=== PATIENT | male | born 1940 | race Caucasian/White ===

== ENCOUNTER 2024-11-07 07:42 | Day surgery (SDC) | payer MEDICARE, SELFPAY ==
[2024-11-01 10:23] VITALS: BMI 24.9
--- NOTE | 2024-11-04 09:38 | HO.ANESPROP2 ---
HPI - Anesthesia Eval Consult details Narrative: 83yo M for Right Cataract Extraction IOL Insertion No previous cataract on record Aortic stenosis with FARZANA = 1.1 PMFSH Past Medical History Medical History History of Mohs micrographic surgery for skin cancer Squamous cell skin cancer Pre-diabetes Osteoarthritis Macrocytosis LVH (left ventricular hypertrophy) Aortic stenosis Surgical History Surgical History History of vitrectomy H/O colonoscopy Social History Social History (Updated 11/01/24 @ 09:52 by Zulema Cruz RN) Are you a primary rn transitional care to a significant other at home: No Do you presently have visiting nurse or other home services: No Patient Tobacco Use Status: Former Tobacco user Tobacco use type: Cigarette Years Smoked: 10 Use of substances other than those prescribed or required for medical reasons: No Have you been hit, kicked, punched, or otherwise hurt by someone within the past year? If so, by whom?: No Spiritual Healthcare Practices: no Congregational Healthcare Practices: no Cultural Healthcare Practices: no Are you DNR?: No Advance Directives Information Provided: Yes (as above noted) Advance Directives on File: No Poor oral hygiene: No Meds Allergies Allergy/AdvReac Type Severity Reaction Status Date / Time No Known Allergies Allergy Verified 11/07/24 07:48 Active Medications: Current Medications Cyclopentolate HCl (Cyclopentolate 1 % Ophth Jazlyn 2 Ml Drpbtl) 1 drop EYE-RIGHT Q5M CHRISTAL Stop: 11/07/24 00:11 Ketorolac Tromethamine (Ketorolac Tromethamine 0.5% Op 5 Ml Drops) 1 drop EYE-RIGHT Q5M CHRISTAL Stop: 11/07/24 00:11 Moxifloxacin HCl (Moxifloxacin Hcl 0.5 % Oph Jazlyn 3 Ml Drpbtl) 1 drop EYE-RIGHT POSTOP ONE Stop: 11/07/24 00:01 Phenylephrine HCl (Phenylephrine Hcl 2.5% Oph Jazlyn 2 Ml Bottle) 1 drop EYE-RIGHT Q5M CHRISTAL Stop: 11/07/24 00:11 Povidone Iodine (Povidone Iodine 5 % Ophth Soln 30 Ml Bottle) 1 appl EYE-RIGHT PREOP PRN PRN Reason: Pre-Op Surgical Implant Prophy Tetracaine HCl (Tetracaine Hcl/Pf 0.5% Oph Jazlyn 4 Ml Drops) 1 drop EYE-RIGHT PREOP ONE Stop: 11/07/24 00:01 Triamcinolone Acetonide (Triamcinolone Acetonide 40 Mg/Ml Vial) 40 mg IM POSTOP ONE Stop: 11/07/24 00:01 Tropicamide (Tropicamide 1 % Ophth Jazlyn 3 Ml Btl) 1 drop EYE-RIGHT Q5M CHRISTAL Stop: 11/07/24 00:11 Home Medications ?Medication ?Instructions ?Recorded ?Confirmed ?Last Taken ?Type acetaminophen 325 mg tablet 650 mg PO Q4H PRN Pain 11/01/24 11/01/24 Unknown History (Tylenol) cholecalciferol (vitamin D3) 10 10 mcg PO DAILY 11/01/24 11/01/24 Unknown History mcg (400 unit) capsule (Vitamin D3) cyanocobalamin (vitamin B-12) 1,000 mcg PO DAILY 11/01/24 11/01/24 Unknown History 1,000 mcg tablet (Vitamin B-12) cyclosporine 0.05 % eye drops in a 1 drp ophthalmic (eye) BID 11/01/24 11/01/24 Unknown History dropperette ibuprofen 200 mg tablet 400 mg PO Q6H PRN Pain 11/01/24 11/01/24 Unknown History multivitamin 1 tab PO DAILY 11/01/24 11/01/24 Unknown History omega 4-vez-lxn-fish oil 100 1 cap PO DAILY 11/01/24 11/01/24 Unknown History mg-160 mg-1,000 mg capsule (Fish Oil) prednisolone acetate 1 % eye 1 drp ophthalmic-Right QID 11/01/24 11/01/24 Unknown History drops,suspension Exam Height,Weight and Vital Signs: Height 5 ft 6.54 in Weight 71.1 kg Assessment and Plan Assessment Anesthesia Assessment: Chart Reviewed
--- NOTE | 2024-11-07 07:59 | HO.ANESPROP2 ---
[facility] Past Medical History Medical History History of Mohs micrographic surgery for skin cancer Squamous cell skin cancer Pre-diabetes Osteoarthritis Macrocytosis LVH (left ventricular hypertrophy) Aortic stenosis Functional capacity: independent ambulation Family History Family history of problems with anesthesia: No Surgical History Surgical History History of vitrectomy H/O colonoscopy History of Problems with Anesthesia: No Social History Social History (Updated 11/01/24 @ 09:52 by Zulema Cruz RN) Are you a primary health care analyst to a significant other at home: No Do you presently have visiting nurse or other home services: No Patient Tobacco Use Status: Former Tobacco user Tobacco use type: Cigarette Years Smoked: 10 Use of substances other than those prescribed or required for medical reasons: No Have you been hit, kicked, punched, or otherwise hurt by someone within the past year? If so, by whom?: No Spiritual Healthcare Practices: no Rastafari Healthcare Practices: no Cultural Healthcare Practices: no Are you DNR?: No Advance Directives Information Provided: Yes (as above noted) Advance Directives on File: No Poor oral hygiene: No Meds Allergies Allergy/AdvReac Type Severity Reaction Status Date / Time No Known Allergies Allergy Verified 11/07/24 07:48 Active Medications: Current Medications Povidone Iodine (Povidone Iodine 5 % Ophth Soln 30 Ml Bottle) 1 appl EYE-RIGHT PREOP PRN PRN Reason: Pre-Op Surgical Implant Prophy Home Medications ?Medication ?Instructions ?Recorded ?Confirmed ?Last Taken ?Type acetaminophen 325 mg tablet 650 mg PO Q4H PRN Pain 11/01/24 11/01/24 Unknown History (Tylenol) cholecalciferol (vitamin D3) 10 10 mcg PO DAILY 11/01/24 11/01/24 Unknown History mcg (400 unit) capsule (Vitamin D3) cyanocobalamin (vitamin B-12) 1,000 mcg PO DAILY 11/01/24 11/01/24 Unknown History 1,000 mcg tablet (Vitamin B-12) cyclosporine 0.05 % eye drops in a 1 drp ophthalmic (eye) BID 11/01/24 11/01/24 Unknown History dropperette ibuprofen 200 mg tablet 400 mg PO Q6H PRN Pain 11/01/24 11/01/24 Unknown History multivitamin 1 tab PO DAILY 11/01/24 11/01/24 Unknown History omega 3-wnh-hcw-fish oil 100 1 cap PO DAILY 11/01/24 11/01/24 Unknown History mg-160 mg-1,000 mg capsule (Fish Oil) prednisolone acetate 1 % eye 1 drp ophthalmic-Right QID 11/01/24 11/01/24 Unknown History drops,suspension Exam Height,Weight and Vital Signs: Height 5 ft 6.54 in Weight 71.1 kg Airway Mallampati Class: II TM Dist: >3cm Neck ROM: Full Heart: RRR Lungs: CYA Assessment and Plan Assessment Anesthesia Assessment: Anesthesia Plan Discussed Final Anesthetic Review Family History of Problems with Anesthesia: No History of Problems with Anesthesia: No NPO: Yes ASA Class: II Final Preanesthetic Review: Meds/Allgs Chart Reviewed, Consent Obtained/Reviewed and Anes Risks/Benef Reviewed Patient Risk: Low Procedure Risk: Low Anesthetic Plan Anesthetic Plan: MAC: Disposition: Standard PACU
[2024-11-07] MEDS: Tetracaine HCl/PF 0.5% Oph Sol 4 ML DROPS 1 DROP EYE-RIGHT (08:05)
[2024-11-07] MEDS: Tropicamide 1 % Ophth Sol 3 ML BTL 1 DROP EYE-RIGHT ×3 (08:06→08:22)
[2024-11-07] MEDS: Cyclopentolate 1 % Ophth Sol 2 ML DRPBTL 1 DROP EYE-RIGHT ×3 (08:06→08:22)
[2024-11-07] MEDS: Phenylephrine HCL 2.5% Oph SoL 2 ML BOTTLE 1 DROP EYE-RIGHT ×3 (08:06→08:22)
[2024-11-07] MEDS: Ketorolac Tromethamine 0.5% Op 5 ML DROPS 1 DROP EYE-RIGHT ×3 (08:06→08:21)
[2024-11-07] MEDS: Lactated Ringers 500 ML 50 ML IV (08:06)
[2024-11-07 08:23] VITALS: BP 132/66; PULSE 61; RESP 18; TEMP 36.7; O2SAT 95
--- NOTE | 2024-11-07 08:58 | P.PCNO_ITS ---
Ophthalmology Procedure Procedure Date of Service: 11/07/24 Ophthalmology Viscoelastic: Healon Duet Dual Pack Pro Ophthalmology Lenses: IOL Acrysof MP - MA60AC (13) Procedure Notes: PREOPERATIVE DIAGNOSIS: Decreased visual acuity right eye secondary to cataract POSTOPERATIVE DIAGNOSIS: Same PROCEDURE: Right cataract extraction with intraocular lens insertion SURGEON: Juancarlos Vaz M.D. ANESTHESIA: Topical/MAC ESTIMATED BLOOD LOSS: None COMPLICATIONS: None After obtaining informed consent, the patient was brought to the operating room suite and placed in the supine position. After adequate sedation per anesthesia, topical drops of Tetracaine were given to the right eye. The eye was then prepped and draped in the usual sterile fashion. The operating room microscope was then positioned over the operative eye and a lid speculum placed. A paracentesis was created. Viscoelastic was then instilled into the anterior chamber. A three plane incision was then created temporally, utilizing a 2.85 mm keratome. Capsulotomy forceps were then utilized to create a circular tear capsulotomy. Hydrodissection and hydrodelineation were carried out until adequate mobilization of the nucleus occurred. Phacoemulsification was then utilized to remove the dense central nucl eus followed by removal of the cortical material utilizing the automated aspiration irrigation unit. Viscoelastic was instilled into the posterior capsular bag followed by placement of a posterior chamber intraocular lens without difficulty. The residual Viscoelastic was then removed utilizing the automated IA machine. The wound was checked and found to be watertight. The patient tolerated the procedure well and the lid speculum was removed. Intracameral injection of Vigamox 0.1 mL followed by a subtenon injection of Kenalog-40 0.2 mL were administered. The patient will be seen in the a.m.
--- NOTE | 2024-11-07 08:58 | MHC.SHP ---
Pre-Procedural Eval Section A - 24 Hr Update-Section A only Date of Service: 11/07/24 The patient is an INPATIENT: No Changes since office visit: No Cold of Flu in the past 2 weeks, No New Medical Problems, No Changes in Medication and No Patient answered all questions The patient has been examined within 24 hours of the surgical procedure. The History & Physical has been completed within 30 days and I have reviewed it.: Yes Section B - Complete if H&P > 30 days Chief Complaint: Age-related nuclear cataract, right eye Allergies: Allergies Allergy/AdvReac Type Severity Reaction Status Date / Time No Known Allergies Allergy Verified 11/07/24 07:48 Plan Diagnosis/Plan: Unchanged I have reviewed the history and physical and performed a pertinent physical examination on my patient. No changes have occurred unless specified. Time Spent With Patient Time: Total time managing care of this patient today ____ minutes.
[2024-11-07 09:26] VITALS: BP 123/63; PULSE 63; RESP 16; TEMP 36.3; O2SAT 96
[2024-11-07 09:28] VITALS: BP 126/63; PULSE 59; RESP 16; TEMP 36.3; O2SAT 96
--- NOTE | 2024-11-07 09:37 | HO.POSTANES ---
Post Anesthesia Evaluation Post Anesthesia Evaluation Date of Service: 11/07/24 Vital Signs: Vital Signs Temp Pulse Resp BP Pulse Ox O2 Del Method 11/07/24 09:28 97.3 F 59 16 126/63 96 Room Air 11/07/24 09:26 97.3 F 63 16 123/63 96 Room Air 11/07/24 08:23 98.0 F 61 18 132/66 95 Room Air Anesthesia: Monitored Mental Status: Awake Pain Control: Satisfactory Nausea/Vomiting: None Hydration: Adequate Anesthesia-Related Issues: No Anes. Related Issues
== END 2024-11-07 09:35 | disposition home or self-care (01) ==
PROVIDERS: PCP Internal Medicine; Visit Provider Ophthalmology
PROC: (CPT 66985; principal; 2024-11-07 09:30)
DX: H25.11 Age-related nuclear cataract, right eye (principal); H54.7 Unspecified visual loss; H35.371 Puckering of macula, right eye; H18.413 Arcus senilis, bilateral; H04.123 Dry eye syndrome of bilateral lacrimal glands; H43.393 Other vitreous opacities, bilateral; H31.093 Other chorioretinal scars, bilateral; I35.0 Nonrheumatic aortic (valve) stenosis; R73.03 Prediabetes; Z85.828 Personal history of other malignant neoplasm of skin; Z79.1 Long term (current) use of non-steroidal anti-inflammatories (NSAID); Z79.899 Other long term (current) drug therapy; Z98.890 Other specified postprocedural states; Z87.891 Personal history of nicotine dependence
CPT/HCPCS: 66984; J2250; J3301; V2630

== ENCOUNTER 2024-11-21 07:24 | Day surgery (SDC) | payer MEDICARE, SELFPAY ==
[2024-11-01 10:29] VITALS: BMI 24.9
[2024-11-21 08:14] VITALS: BP 104/85; PULSE 56; RESP 16; TEMP 36.1; O2SAT 94
[2024-11-21] MEDS: Tetracaine HCl/PF 0.5% Oph Sol 4 ML DROPS 1 DROP EYE-LEFT (08:17)
[2024-11-21] MEDS: Tropicamide 1 % Ophth Sol 3 ML BTL 1 DROP EYE-LEFT ×3 (08:18→08:25)
[2024-11-21] MEDS: Cyclopentolate 1 % Ophth Sol 2 ML DRPBTL 1 DROP EYE-LEFT ×3 (08:18→08:24)
[2024-11-21] MEDS: Phenylephrine HCL 2.5% Oph SoL 2 ML BOTTLE 1 DROP EYE-LEFT ×3 (08:21→08:26)
[2024-11-21] MEDS: Ketorolac Tromethamine 0.5% Op 5 ML DROPS 1 DROP EYE-LEFT ×3 (08:21→08:25)
[2024-11-21] MEDS: Lactated Ringers 500 ML 50 ML IV (08:28)
--- NOTE | 2024-11-21 08:29 | HO.ANESPROP2 ---
[facility] Past Medical History Medical History History of Mohs micrographic surgery for skin cancer Squamous cell skin cancer Pre-diabetes Osteoarthritis Macrocytosis LVH (left ventricular hypertrophy) Aortic stenosis Family History Family history of problems with anesthesia: No Surgical History Surgical History History of vitrectomy H/O colonoscopy History of Problems with Anesthesia: No Social History Social History (Updated 11/01/24 @ 09:52 by Zulema Cruz RN) Are you a primary respiratory care technician to a significant other at home: No Do you presently have visiting nurse or other home services: No Patient Tobacco Use Status: Former Tobacco user Tobacco use type: Cigarette Years Smoked: 10 Use of substances other than those prescribed or required for medical reasons: No Have you been hit, kicked, punched, or otherwise hurt by someone within the past year? If so, by whom?: No Spiritual Healthcare Practices: no Buddhism Healthcare Practices: no Cultural Healthcare Practices: no Are you DNR?: No Advance Directives Information Provided: Yes (as above noted) Advance Directives on File: No Poor oral hygiene: No Meds Allergies Allergy/AdvReac Type Severity Reaction Status Date / Time No Known Allergies Allergy Verified 11/07/24 07:48 Active Medications: Current Medications Lactated Ringer's (Lr) 500 mls @ 50 mls/hr IV .Q10H CHRISTAL Stop: 11/21/24 18:29 Last Admin: 11/21/24 08:28 Dose: 50 mls/hr Naloxone HCl (Naloxone Hcl 0.4 Mg/Ml Vial) 0.04 mg IVPUSH Q5M PRN PRN Reason: Excessive sedation or RR < 8 Povidone Iodine (Povidone Iodine 5 % Ophth Soln 30 Ml Bottle) 1 appl EYE-LEFT PREOP PRN PRN Reason: Pre-Op Surgical Implant Prophy Home Medications ?Medication ?Instructions ?Recorded ?Confirmed ?Last Taken ?Type acetaminophen 325 mg tablet 650 mg PO Q4H PRN Pain 11/01/24 11/01/24 Unknown History (Tylenol) cholecalciferol (vitamin D3) 10 10 mcg PO DAILY 11/01/24 11/01/24 Unknown History mcg (400 unit) capsule (Vitamin D3) cyanocobalamin (vitamin B-12) 1,000 mcg PO DAILY 11/01/24 11/01/24 Unknown History 1,000 mcg tablet (Vitamin B-12) cyclosporine 0.05 % eye drops in a 1 drp ophthalmic (eye) BID 11/01/24 11/01/24 Unknown History dropperette ibuprofen 200 mg tablet 400 mg PO Q6H PRN Pain 11/01/24 11/01/24 Unknown History multivitamin 1 tab PO DAILY 11/01/24 11/01/24 Unknown History omega 5-fhc-urm-fish oil 100 1 cap PO DAILY 11/01/24 11/01/24 Unknown History mg-160 mg-1,000 mg capsule (Fish Oil) prednisolone acetate 1 % eye 1 drp ophthalmic-Right QID 11/01/24 11/01/24 Unknown History drops,suspension Exam Height,Weight and Vital Signs: Height 5 ft 6.54 in Weight 71.1 kg Last Vital Signs Temp 97 F 11/21/24 08:14 Pulse 56 11/21/24 08:14 Resp 16 11/21/24 08:14 BP 104/85 11/21/24 08:14 Pulse Ox 94 11/21/24 08:14 O2 Del Method Room Air 11/21/24 08:14 Airway Mallampati Class: II TM Dist: >3cm Neck ROM: Full Heart: rrr Lungs: cta Assessment and Plan Assessment Anesthesia Assessment: Anesthesia Plan Discussed and Chart Reviewed Final Anesthetic Review Family History of Problems with Anesthesia: No History of Problems with Anesthesia: No NPO: Yes ASA Class: II Final Preanesthetic Review: No Changes in Pt Med Stat, Meds/Allgs Chart Reviewed and Consent Obtained/Reviewed Patient Risk: Low Procedure Risk: Low Anesthetic Plan Anesthetic Plan: MAC: Disposition: Standard PACU
--- NOTE | 2024-11-21 09:09 | MHC.SHP ---
Pre-Procedural Eval Section A - 24 Hr Update-Section A only Date of Service: 11/21/24 The patient is an INPATIENT: No Changes since office visit: No Cold of Flu in the past 2 weeks, No New Medical Problems, No Changes in Medication and No Patient answered all questions The patient has been examined within 24 hours of the surgical procedure. The History & Physical has been completed within 30 days and I have reviewed it.: Yes Section B - Complete if H&P > 30 days Chief Complaint: Age-related nuclear cataract, left eye Allergies: Allergies Allergy/AdvReac Type Severity Reaction Status Date / Time No Known Allergies Allergy Verified 11/07/24 07:48 Plan Diagnosis/Plan: Unchanged I have reviewed the history and physical and performed a pertinent physical examination on my patient. No changes have occurred unless specified. Time Spent With Patient Time: Total time managing care of this patient today ____ minutes.
--- NOTE | 2024-11-21 09:10 | HO.PNOPHT ---
Ophthalmology Procedure Procedure Date of Service: 11/21/24 Ophthalmology Viscoelastic: Healon Duet Dual Pack Pro Ophthalmology Lenses: IOL Acrysof MP - MA60AC (15) Procedure Notes: PREOPERATIVE DIAGNOSIS: Decreased visual acuity left eye secondary to cataract POSTOPERATIVE DIAGNOSIS: Same PROCEDURE: Left cataract extraction with intraocular lens insertion SURGEON: Juancarlos Vaz M.D. ANESTHESIA: Topical/MAC ESTIMATED BLOOD LOSS: None COMPLICATIONS: None After obtaining informed consent, the patient was brought to the operation room suite and placed in the supine position. After adequate sedation per anesthesia, topical drops of Tetracaine were given to the left eye. The eye was then prepped and draped in the usual sterile fashion. The operating room microscope was then positioned over the operative eye and a lid speculum placed. A paracentesis was created. Viscoelastic was then instilled into the anterior chamber. A three plane incision was then created temporally, utilizing a 2.85 mm keratome. Capsulotomy forceps were then utilized to create a circular tear capsulotomy. Hydrodissection and hydrodelineation were carried out until adequate mobilization of the nucleus occurred. Phacoemulsification was then utilized to remove the dense central nucleus followed by removal of the cortical material utilizing the automated aspiration irrigation unit. Viscoat elastic was instilled into the posterior capsular bag followed by placement of a posterior chamber intraocular lens without difficulty. The residual Viscoat elastic was then removed utilizing the automated IA machine. The wound was check and found to be watertight. The patient tolerated the procedure well and the lid speculum was removed. Intracameral injection of Vigamox 0.1 mL followed by a subtenon injection of Kenalog-40 0.2 mL were administered. The patient will be seen in the a.m.
[2024-11-21 09:34] VITALS: BP 132/75; PULSE 56; RESP 15; TEMP 36.3; O2SAT 100
== END 2024-11-21 09:39 | disposition home or self-care (01) ==
PROVIDERS: PCP Internal Medicine; Visit Provider Ophthalmology
PROC: (CPT 66985; principal; 2024-11-21 09:30)
DX: H25.12 Age-related nuclear cataract, left eye (principal); H54.7 Unspecified visual loss; H18.413 Arcus senilis, bilateral; H31.093 Other chorioretinal scars, bilateral; H43.393 Other vitreous opacities, bilateral; H04.123 Dry eye syndrome of bilateral lacrimal glands; R73.03 Prediabetes; H35.371 Puckering of macula, right eye; I51.7 Cardiomegaly; I35.0 Nonrheumatic aortic (valve) stenosis; Z79.1 Long term (current) use of non-steroidal anti-inflammatories (NSAID); Z79.899 Other long term (current) drug therapy; Z85.828 Personal history of other malignant neoplasm of skin; Z87.891 Personal history of nicotine dependence; Z98.890 Other specified postprocedural states
CPT/HCPCS: 66984; J2250; J3301; V2630